=== PATIENT | male | born 1980 | race Caucasian/White ===

== ENCOUNTER 2020-02-19 16:43 | Emergency (ER) | payer OTHER ==
--- NOTE | 2020-02-19 16:58 | ED Physician Documentation ---
PD HPI HEAD INJURY - Stated complaint Stated Complaint: HEAD LAC - Chief complaint Chief Complaint: Wound - History obtained from History obtained from: Patient - History of Present Illness Mechanism of head injury: Blow (he says he was tying up boat to a dock and he stood up and struck top of head on metal cleat. Scalp lac with bleeding. No LOC nor altered mentation.) Where head injury occurred: Other (caterina) Timing - onset: How many hours ago (1), Today Location of injury: Front, Top Quality of pain: Aching Associated symptoms: No: LOC, AMS, Nausea / vomiting Symptoms worsen with: Palpation Contributing factors: No: Anticoagulated, Intoxicated Similar symptoms before: Has not had sx before Review of Systems Constitutional: denies: Fever Nose: denies: Rhinorrhea / runny nose, Congestion Throat: denies: Sore throat Respiratory: denies: Cough GI: denies: Nausea, Vomiting Skin: reports: Laceration (s) (top of head) Neurologic: denies: Near syncope, Altered mental status, Headache PD PAST MEDICAL HISTORY - Past Medical History Past Medical History: No - Allergies Allergies/Adverse Reactions: Allergies Allergy/AdvReac Type Severity Reaction Status Date / Time bee venom protein (honey bee) Allergy Unknown Verified 02/19/20 16:50 PD ED PE NORMAL - Vitals Vital signs reviewed: Yes - General General: Alert and oriented X 3, No acute distress, Well developed/nourished - HEENT HEENT: PERRL, EOMI, Other (top of head with 1.5 cm laceration with edges slightly apart and mild bleeding. No FB. ) - Neck Neck: Supple, no meningeal sign, No bony TTP - Derm Derm: Normal color, Warm and dry - Neuro Neuro: Alert and oriented X 3, No motor deficit, Normal speech Results - Vitals Vitals: Vital Signs - 24 hr 02/19/20 02/19/20 16:46 17:19 Temperature 37.1 C 36.7 C Heart Rate 61 60 Respiratory 16 16 Rate Blood Pressure 133/75 H 125/72 O2 Saturation 97 96 Oxygen O2 Source Room air Procedures - Laceration (location) scalp top frontal Length in cm: 1.5 Wound type: Linear, Into subcut fat, Clean Neurovascular status: Sensory intact Anesthesia: Lidocaine 2% Wound Preparation: Irrigated copiously NS Skin layer closure: [place] Other: Patient tolerated well, Neurovascular intact, Tetanus booster given Complexity: Simple Departure - Departure Disposition: 01 Home, Self Care Clinical Impression: Scalp laceration Qualifiers: Encounter type: initial encounter Qualified Code(s): S01.01XA - Laceration without foreign body of scalp, initial encounter Condition: Stable Record reviewed to determine appropriate education?: Yes Instructions: ED Laceration Scalp Stitch Or Stap Follow-Up: CHANTE DUFFY MD [Primary Care Provider] - Comments: It is okay to wash and shower. Clean off the wound twice a day with soap and water, or peroxide and water. Apply some antibiotic ointment to it to keep it moist. Also to watch for signs of infection such as purulence, redness or increasing pain. Return to your primary care or the ER at the specified time for suture removal. Staple removal 7 to 10 days. Discharge Date/Time: 02/19/20 17:20
[2020-02-19 17:20] VITALS: BP 125/72
== END 2020-02-19 17:20 | disposition home or self-care (01) ==
LOC: ED 16:43
DX: S01.01XA Laceration without foreign body of scalp, initial encounter (principal); W22.09XA Striking against other stationary object, initial encounter; Y93.89 Activity, other specified; Y92.814 Boat as the place of occurrence of the external cause
CPT/HCPCS: 12001; 99282; 99284